=== PATIENT | male | born 2000 | race Caucasian/White ===

== ENCOUNTER 2022-10-15 03:56 | Emergency (ER) | payer MEDICAID ==
[~2022-10-15] VITALS: Ht 190.5 cm; Wt 82.0 kg
[2022-10-15] MEDS ORDERED: ACETAMINOPHEN 500MG TABLET PO ONE (04:45)
[2022-10-15] MEDS ORDERED: ONDANSETRON 4MG ODT PO ONE (04:45)
[2022-10-15] MEDS ORDERED: AMOX-494 MT (05:07)
[2022-10-15] MEDS ORDERED: IBUP-2029 MT (05:07)
[2022-10-15 05:33] VITALS: BP 112/78
== END 2022-10-15 05:00 | disposition home or self-care (01) ==
LOC: ER 03:56
DX: J02.9 Acute pharyngitis, unspecified (principal); Z20.822 Contact with and (suspected) exposure to COVID-19
CPT/HCPCS: 87070; 87426; 87430; 87804; 99283; C9803; Q0162